=== PATIENT | female | born 1950 | race Two or more races ===

== ENCOUNTER 2018-12-02 09:50 | Outpatient (CLI) | payer OTHER | END 2018-12-02 09:57 | disposition home or self-care (01) | LOC: MAMO-SONO 09:50 | DX: Z12.31 Encounter for screening mammogram for malignant neoplasm of breast (principal); Z87.898 Personal history of other specified conditions ==

== ENCOUNTER 2020-11-20 08:48 | Outpatient (CLI) | payer OTHER | END 2020-11-20 08:52 | disposition home or self-care (01) | LOC: NUCLEAR 08:48 | PROVIDERS: ATTEND General Practice | DX: I73.9 Peripheral vascular disease, unspecified (principal); I83.11 Varicose veins of right lower extremity with inflammation; I83.12 Varicose veins of left lower extremity with inflammation ==

== ENCOUNTER 2021-10-06 11:57 | Outpatient (CLI) | payer OTHER | END 2021-10-06 12:04 | disposition home or self-care (01) | LOC: MAMO-SONO 11:57 | PROVIDERS: ATTEND General Practice | DX: Z12.31 Encounter for screening mammogram for malignant neoplasm of breast (principal) ==

== ENCOUNTER 2021-10-24 13:48 | Outpatient (CLI) | payer OTHER | END 2021-10-24 13:49 | disposition home or self-care (01) | LOC: NUCLEAR 13:48 | PROVIDERS: ATTEND General Practice | DX: M81.0 Age-related osteoporosis without current pathological fracture (principal) ==

== ENCOUNTER 2023-05-13 12:50 | Outpatient (CLI) | payer OTHER | END 2023-05-13 13:00 | disposition home or self-care (01) | LOC: MAMO-SONO 12:50 | DX: N60.21 Fibroadenosis of right breast (principal); N60.22 Fibroadenosis of left breast; Z12.31 Encounter for screening mammogram for malignant neoplasm of breast ==

== ENCOUNTER 2023-12-06 12:35 | Outpatient (CLI) | payer OTHER | END 2023-12-06 12:42 | disposition home or self-care (01) | LOC: SONOGRAMA 12:35 → RAD 12:35 | DX: N64.9 Disorder of breast, unspecified (principal) ==

== ENCOUNTER 2024-11-14 12:48 | Outpatient (CLI) | payer OTHER | END 2024-11-14 12:50 | disposition home or self-care (01) | LOC: MAMO-SONO 12:48 | PROVIDERS: ATTEND General Practice | DX: N64.9 Disorder of breast, unspecified (principal); Z12.31 Encounter for screening mammogram for malignant neoplasm of breast ==